=== PATIENT | male | born 1980 | race Caucasian/White ===

== ENCOUNTER 2020-06-04 10:31 | Day surgery (SDC) | payer BC ==
--- NOTE | 2020-06-04 07:39 | PCM.SN.2 ---
- Free Text/Narrative Note: Date: 06/04/2020 Time Out: 1152 Start: 1152 Stop: 1203 Current Procedure: Left interscalene block under US guidance for postoperative pain control requested by Dr. Waite. Patient chart reviewed, risk/benefits discussed with patient, consent obtained. Patient positioned supine, monitors/alarms on, oxygen placed via nasal cannula at 2 LPM. IV sedation administered: Versed 2mg IV, Fentanyl 50mcg IV given in preop prior to block placement. Left shoulder prepped with two chloropreps. Sterile drapes placed with aseptic technique noted. Under US guidance, left subclavian artery visualized along with the left brachial plexus. Plexus followed up to C6 cricoid level, and area localized with 2mls of 1% lidocaine. 22gauge 2 inch stimiplex needle advanced under US with 0.6mV with stimulation of biceps noted. Good stimulation noted with decreased voltage and absent at 0.3mVs. 1ml of Normal Saline injected with loss of stimulation noted to confirm needle not placed intraneurally. Incremental dosing of 5mls with negative aspiration noted prior to each injection of 0.5% ropivacaine with 1:200,000 epinephrine. Total volume=30mls. Please refer to nurses noted for vital signs. Reanna Nelson CRNA
--- NOTE | 2020-06-04 09:21 | PCM.PREANE ---
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 with energy drinks/pre- workout beverage)) Gastrointestinal: No Symptoms Neurological: No Symptoms Other: Reports: None - Physical Assessment NPO Status Date: 06/03/20 NPO Status Time: 23:00 Vital Signs: HR:67 Sat:96% Resp:16 B/P:113/86 Temp:98.3 Height: 1.88 m Weight: 95 kg ASA Class: 2 Mental Status: Alert & Oriented x3 Airway Class: Mallampati = 2 Dentition: Reports: Normal Dentition, Caries Thyro-Mental Finger Breadths: 3 Mouth Opening Finger Breadths: 3 ROM/Head Extension: Full Lungs: Clear to Auscultation, Normal Respiratory Effort Cardiovascular: Regular Rate, Regular Rhythm, No Murmurs - Lab Values: Laboratory Last Values MRSA (PCR) Negative 05/23/20 14:12 All labs reviewed and noted and within acceptable ranges to proceed with scheduled procedure. - Imaging/EKG Impressions: EKG: Sinus Rhythm rate=65. - Allergies Allergies/Adverse Reactions: Allergies Allergy/AdvReac Type Severity Reaction Status Date / Time No Known Allergies Allergy Verified 06/03/20 13:40 - Anesthesia Plan Pre-Op Medication Ordered: None - Acknowledgements Anesthesia Type Planned: General Anesthesia (Left ISB under US guidance for post operative pain control requested by Dr. Waite.) Pt an Appropriate Candidate for the Planned Anesthesia: Yes Alternatives and Risks of Anesthesia Discussed w Pt/Guardian: Yes Pt/Guardian Understands and Agrees with Anesthesia Plan: Yes PreAnesthesia Questionnaire - Past Health History Medical/Surgical History: Denies Medical/Surgical History - Infectious Disease History Infectious Disease History: Reports: None - SUBSTANCE USE Tobacco Use Status *Q: Never Tobacco User Recreational Drug Use History: No - HOME MEDS Home Medications: Home Meds Multivitamin 1 tab PO DAILY 06/03/20 [History] Acetaminophen/HYDROcodone [[place] 325-5 MG] 1 - 2 tab PO Q6H PRN #30 tablet 06/04/20 [Rx] Cyclobenzaprine [Flexeril] 10 mg PO BID PRN #20 tab 06/04/20 [Rx] - CURRENT (IN HOUSE) MEDS Current Meds: Current Medications Lactated Ringer's (Ringers, Lactated) 1,000 mls @ 125 mls/hr IV ASDIRECTED SAÚL Stop: 06/04/20 23:00 Lidocaine/Sodium Bicarbonate (Buffered Lidocaine 1% In Ns 8.4%) 0.25 ml IDERM ONETIME PRN PRN Reason: Prior to IV Start Stop: 06/04/20 18:00 Sodium Chloride (Saline Flush) 10 ml FLUSH ASDIRECTED PRN PRN Reason: Keep Vein Open Stop: 06/04/20 18:00 Discontinued Medications Epinephrine HCl (Adrenalin) Confirm Administered Dose 1 mg .ROUTE .STK-MED ONE Stop: 06/04/20 06:45 Lidocaine HCl (Xylocaine-Mpf 1%) Confirm Administered Dose 2 mls @ as directed .ROUTE .STK-MED ONE Stop: 06/04/20 06:45 Ropivacaine (Naropin 0.5%) Confirm Administered Dose 30 ml .ROUTE .STK-MED ONE Stop: 06/04/20 06:45
[~2020-06-04 10:31] MED LIST: EPINEPHrine 1 MG/ML SDV ONE; Lactated Ringers 1,000 ML IV SCH; Lidocaine 1% 2 ML ONE; Lidocaine 1% 4 ML ONE; Lidocaine 1%/Sod Bicarbonate in NS 8.4% 1 ML Syringe IDERM PRN; Midazolam 1 MG/ML 2 ML SDV ONE; Propofol 200 MG/20 ML SDV ONE; Ropivacaine 0.5% 5 MG/ML 30 ML SDV ONE; Sodium Chloride 0.9% 10 ML Syringe FLUSH PRN
[2020-06-04] MEDS ORDERED: fentaNYL 100 MCG/2 ML SDV ONE ×2 (10:32→11:13)
[2020-06-04] MEDS ORDERED: Rocuronium 50 MG/5 ML Vial ONE (11:13)
[2020-06-04] MEDS ORDERED: ceFAZolin 1 GM Vial ONE (12:44)
[2020-06-04] MEDS ORDERED: EPINEPHrine 1 MG/ML 30 ML MDV IRR SCH (12:45)
[2020-06-04] MEDS ORDERED: Ondansetron 4 MG/2 ML SDV IVPUSH PRN (13:33)
[2020-06-04] MEDS ORDERED: Ketorolac 30 MG/ML SDV ONE (13:44)
[2020-06-04] MEDS ORDERED: Ondansetron 4 MG/2 ML SDV ONE (13:44)
--- NOTE | 2020-06-04 14:13 | PCM.POSTAN ---
POST ANESTHESIA ASSESSMENT - MENTAL STATUS Mental Status: Alert, Oriented - VITAL SIGNS Vital Signs: Last Vital Signs Temp 36.7 C 06/04/20 14:07 Pulse 78 06/04/20 12:07 Resp 10 L 06/04/20 14:07 BP 150/94 H 06/04/20 14:07 Pulse Ox 97 06/04/20 14:07 - RESPIRATORY Respiratory Status: Respiratory Rate WNL, Airway Patent, O2 Saturation Stable - CARDIOVASCULAR CV Status: Pulse Rate WNL, Blood Pressure Stable - GASTROINTESTINAL GI Status: No Symptoms - PAIN Pain Score: 0 - POST OP HYDRATION Hydration Status: Adequate & Stable
--- NOTE | 2020-06-04 14:44 | PCM48HPAN ---
Post Anesthesia Note - EVALUATION WITHIN 48HRS OF ANESTHETIC Vital Signs in Normal Range: Yes Patient Participated in Evaluation: Yes Respiratory Function Stable: Yes Airway Patent: Yes Cardiovascular Function Stable: Yes Hydration Status Stable: Yes Pain Control Satisfactory: Yes Nausea and Vomiting Control Satisfactory: Yes Mental Status Recovered: Yes Vital Signs: Last Vital Signs Temp 36.7 C 06/04/20 14:07 Pulse 78 06/04/20 12:07 Resp 14 06/04/20 14:30 BP 147/104 H 06/04/20 14:30 Pulse Ox 99 06/04/20 14:41
--- NOTE | 2020-06-13 10:34 | PCM.OPNOTE ---
- General Post-Op/Procedure Note Date of Surgery/Procedure: 06/04/20 Operative Procedure(s): left shoulder video arthroscopy with bicepts tenotomy, extensive debridement and SLAP repair Pre Op Diagnosis: left shoulder SLAP tear with tendinopathy and chondromalacia Post-Op Diagnosis: Same Anesthesia Technique: General ET Tube, Regional Block Primary Surgeon: Brian Waite Anesthesia Provider: Daysi Mares Pipe Bending Machine Operator: Nicole Nuno in mLs: 5 Complications: None Condition: Good
--- NOTE | 2020-06-17 13:43 | OR ---
DATE OF OPERATION: 06/04/2020 SURGEON: Brian Waite MD OPERATION PERFORMED: Left shoulder video arthroscopy with biceps tenotomy, extensive debridement, and SLAP repair. PREOPERATIVE DIAGNOSIS: Left shoulder SLAP tear with tendinopathy and chondromalacia. 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 ANESTHESIA: General endotracheal intubation with regional interscalene block. ANESTHESIA PROVIDER: Daysi Mares CRNA LOCAL COORDINATOR: Nicole Nuno PA-C. ESTIMATED BLOOD LOSS: Less than 5 mL. COMPLICATIONS: None. CONDITION: Stable. DESCRIPTION OF PROCEDURE: The patient was identified in the preoperative holding area. Proper site was marked and identified by the surgeon. The patient was taken back to the operating theater where after adequate anesthesia the patient was placed in a lazy right lateral decubitus position. Wedge was placed posteriorly. Left upper extremity was then sterilely prepped and draped in the usual sterile fashion. OR time-out was performed. The patient received 2 g IV Ancef. 12 pounds traction was applied to the left upper extremity. Standard posterior incision was made. Scope trocar was introduced into the glenohumeral joint. With the use of a spinal needle, inside-out technique, an anterior portal was created as well. The patient was noted to have large cartilaginous defects in both glenoid and the humeral head with grade 3/4 chondromalacia diffusely. The patient was noted to have a significant SLAP tear with biceps tendinopathy. His subscapularis tendon as well as the rotator cuff were intact on the undersurface. The patient at this time underwent a biceps tenotomy. I did do an extensive debridement of the chondromalacia as well as the extreme synovitis. I debrided the labrum back to a stable rim and then placed 2 anchors in the superior anterior labrum to keep it from flipping into the joint and was found to have adequate repair. At this time, attention was turned to the subacromial space. The patient's rotator cuff was intact. I did an extensive debridement of the subacromial space. I did not perform an acromioplasty secondary to the patient more likely needing a reverse total shoulder arthroplasty sometime in his life. Incisions were closed with 3-0 nylon. The patient was placed in a sterile soft dressing and a pillow sling and sent to the PACU in stable condition. LAUREN /[id number]
== END 2020-06-04 15:46 | disposition home or self-care (01) ==
LOC: JD.SDS 10:31
PROVIDERS: ATTEND Orthopaedic Surgery
DX: S43.432A Superior glenoid labrum lesion of left shoulder, initial encounter (principal); M94.212 Chondromalacia, left shoulder; M75.22 Bicipital tendinitis, left shoulder; M65.812 Other synovitis and tenosynovitis, left shoulder; G89.18 Other acute postprocedural pain; Z79.899 Other long term (current) drug therapy
CPT/HCPCS: 01630; 64415; 87641; C1713; J0171; J0690; J1885; J2250; J2405; J2704; J2795; J3010; J7120

== ENCOUNTER 2020-08-23 07:39 | Day surgery (SDC) | payer BC ==
--- NOTE | 2020-08-23 07:22 | PCM.PREANE ---
Preanesthetic Assessment - Procedure Proposed Procedure: Right shoulder video arthroscopy with labral repair - Anesthesia/Transfusion/Family Hx Anesthesia History: No Prior Anesthesia Family History of Anesthesia Reaction: No Transfusion History: No Prior Transfusion(s) Intubation History: Unknown - Review of Systems General: No Symptoms Pulmonary: No Symptoms Cardiovascular: No Symptoms Gastrointestinal: No Symptoms Neurological: No Symptoms Other: Reports: None - Physical Assessment NPO Status Date: 08/22/20 NPO Status Time: 00:00 Height: 1.88 m Weight: 94 kg ASA Class: 2 Mental Status: Alert & Oriented x3 Airway Class: Mallampati = 1 Dentition: Reports: Normal Dentition Thyro-Mental Finger Breadths: 3 Mouth Opening Finger Breadths: 3 ROM/Head Extension: Full Lungs: Clear to Auscultation, Normal Respiratory Effort Cardiovascular: Regular Rate, Regular Rhythm - Allergies Allergies/Adverse Reactions: Allergies Allergy/AdvReac Type Severity Reaction Status Date / Time No Known Allergies Allergy Verified 08/22/20 14:01 - Anesthesia Plan Pre-Op Medication Ordered: None - Acknowledgements Anesthesia Type Planned: General Anesthesia, Regional Block (interscalene block for post-op pain control) Pt an Appropriate Candidate for the Planned Anesthesia: Yes Alternatives and Risks of Anesthesia Discussed w Pt/Guardian: Yes Pt/Guardian Understands and Agrees with Anesthesia Plan: Yes PreAnesthesia Questionnaire - Past Health History Medical/Surgical History: Denies Medical/Surgical History HEENT History: Reports: None Cardiovascular History: Reports: Other (See Below) Other Cardiovascular History: palpitations Respiratory History: Reports: None Gastrointestinal History: Reports: None Genitourinary History: Reports: None IC ENGINEER History: Reports: None Musculoskeletal History: Neurological History: Reports: None Psychiatric History: Reports: None Endocrine/Metabolic History: Reports: None Hematologic History: Reports: None Immunologic History: Reports: None Oncologic (Cancer) History: Reports: None Dermatologic History: Reports: None - Infectious Disease History Infectious Disease History: Reports: None - Past Surgical History Head Surgeries/Procedures: Reports: None HEENT Surgical History: Reports: None Cardiovascular Surgical History: Reports: None Respiratory Surgical History: Reports: None GI Surgical History: Reports: None Female Surgical History: Reports: None Male Surgical History: Reports: None Endocrine Surgical History: Reports: None Neurological Surgical History: Reports: None Musculoskeletal Surgical History: Reports: Shoulder Surgery Oncologic Surgical History: Reports: None Dermatological Surgical History: Reports: None - SUBSTANCE USE Tobacco Use Status *Q: Never Tobacco User Tobacco Use Within Last Twelve Months: No Second Hand Smoke Exposure: No Days Per Week of Alcohol Use: 0 Number of Drinks Per Day: 0 Total Drinks Per Week: 0 Recreational Drug Use History: No - HOME MEDS Home Medications: Home Meds Multivitamin 1 tab PO DAILY 06/03/20 [History] Acetaminophen/HYDROcodone [[place] 325-5 MG] 1 - 2 tab PO Q6H PRN #30 tablet 08/23/20 [Rx] Cyclobenzaprine [Flexeril] 10 mg PO BID PRN #20 tab 08/23/20 [Rx] - CURRENT (IN HOUSE) MEDS Current Meds: Current Medications Epinephrine HCl (Epinephrine 1 Mg/Ml 30 Ml Mdv) 3 mg IRR ONETIME SAÚL Stop: 08/23/20 16:00 Lactated Ringer's (Ringers, Lactated) 1,000 mls @ 125 mls/hr IV ASDIRECTED SAÚL Stop: 08/23/20 23:00 Lidocaine/Sodium Bicarbonate (Lidocaine 1%/Sod Bicarbonate In Ns 8.4% 1 Ml Syringe) 0.25 ml IDERM ONETIME PRN PRN Reason: Prior to IV Start Stop: 08/23/20 18:00 Sodium Chloride (Sodium Chloride 0.9% 10 Ml Syringe) 10 ml FLUSH ASDIRECTED PRN PRN Reason: Keep Vein Open Stop: 08/23/20 18:00 Discontinued Medications Cefazolin Sodium (Cefazolin 1 Gm Vial) Confirm Administered Dose 2 gm .ROUTE .STK-MED ONE Stop: 08/23/20 06:54 Epinephrine HCl (Epinephrine 1 Mg/Ml Sdv) Confirm Administered Dose 1 mg .ROUTE .STK-MED ONE Stop: 08/23/20 06:57 Fentanyl (Fentanyl 100 Mcg/2 Ml Sdv) Confirm Administered Dose 100 mcg .ROUTE .STK-MED ONE Stop: 08/23/20 06:44 Lidocaine HCl (Xylocaine-Mpf 1%) Confirm Administered Dose 6 mls @ as directed .ROUTE .STK-MED ONE Stop: 08/23/20 06:44 Midazolam HCl (Midazolam 1 Mg/Ml 2 Ml Sdv) Confirm Administered Dose 2 mg .ROUTE .STK-MED ONE Stop: 08/23/20 06:44 Ondansetron HCl (Ondansetron 4 Mg/2 Ml Sdv) Confirm Administered Dose 4 mg .ROUTE .STK-MED ONE Stop: 08/23/20 06:43 Propofol (Propofol 200 Mg/20 Ml Sdv) Confirm Administered Dose 200 mg .ROUTE .STK-MED ONE Stop: 08/23/20 06:44 Rocuronium Brady (Rocuronium 50 Mg/5 Ml Vial) Confirm Administered Dose 50 mg .ROUTE .STMusistic-MED ONE Stop: 08/23/20 06:43 Ropivacaine (Ropivacaine 0.5% 5 Mg/Ml 30 Ml Sdv) Confirm Administered Dose 30 ml .ROUTE .STMusistic-MED ONE Stop: 08/23/20 06:57
[~2020-08-23 07:39] MED LIST changes: -Lidocaine 1% 2 ML ONE; -Lidocaine 1% 4 ML ONE; +Lidocaine 1% 6 ML ONE; +Ondansetron 4 MG/2 ML SDV ONE; +Rocuronium 50 MG/5 ML Vial ONE; +ceFAZolin 1 GM Vial ONE; +fentaNYL 100 MCG/2 ML SDV ONE
--- NOTE | 2020-08-23 08:03 | PCM.SN.2 ---
- Free Text/Narrative Note: Date: 08/23/2020 Time Out:734 Start: 734 Stop: 749 Surgical Procedure: Right shoulder video arthroscopy with labral repair Diagnosis Right Shoulder pain Current Procedure: Right interscalene block under US guidance for postoperative pain control requested by Dr. Waite. Patient chart reviewed, risk/benefits discussed with patient, consent obtained. Patient positioned supine, monitors/alarms on, oxygen placed via nasal cannula at 2 LPM. IV sedation administered: Versed 2mg IV, Fentanyl 100mcg IV given in preop prior to block placement. Right shoulder prepped with three chloropreps. Sterile drapes placed with aseptic technique noted. Under US guidance, right subclavian artery visualized along with the right brachial plexus. Plexus followed up to C6 cricoid level, and area localized with 2mls of 1% lidocaine. 22gauge 2 inch stimiplex needle advanced under US with 0.8mV with stimulation of biceps noted. Good stimulation noted with decreased voltage and absent at 0.3mVs. 1ml of Normal Saline injected with loss of stimulation noted to confirm needle not placed intraneurally. Incremental dosing of 5mls with negative aspiration noted prior to each injection of 0.5% ropivacaine with 1:200,000 epinephrine. Total volume=30mls. Please refer to nurses noted for vital signs. Rishi Alves CRNA
[2020-08-23] MEDS: EPINEPHrine 1 MG/ML 30 ML MDV IRR SCH ×2 (08:19→09:28)
[2020-08-23] MEDS ORDERED: Lactated Ringers 1,000 ML ONE (08:54)
[2020-08-23] MEDS ORDERED: Ketorolac 30 MG/ML SDV ONE (09:55)
--- NOTE | 2020-08-23 10:29 | PCM.POSTAN ---
POST ANESTHESIA ASSESSMENT - MENTAL STATUS Mental Status: Alert, Oriented - VITAL SIGNS Vital Signs: Last Vital Signs Temp 36.1 C 08/23/20 10:17 Pulse 75 08/23/20 10:17 Resp 17 08/23/20 10:17 BP 129/91 H 08/23/20 10:17 Pulse Ox 93 L 08/23/20 10:17 - RESPIRATORY Respiratory Status: Respiratory Rate WNL, Airway Patent, O2 Saturation Stable, Supplemental Oxygen - CARDIOVASCULAR CV Status: Pulse Rate WNL, Blood Pressure Stable - GASTROINTESTINAL GI Status: No Symptoms - PAIN Pain Score: 0 - POST OP HYDRATION Hydration Status: Adequate & Stable - OBSERVATIONS Free Text/Narrative:: no anesthesia complications noted
[2020-08-23] MEDS ORDERED: Ondansetron 4 MG/2 ML SDV IVPUSH ONE (11:20)
--- NOTE | 2020-08-23 12:52 | PCM48HPAN ---
Post Anesthesia Note - EVALUATION WITHIN 48HRS OF ANESTHETIC Vital Signs in Normal Range: Yes Patient Participated in Evaluation: Yes Respiratory Function Stable: Yes Airway Patent: Yes Cardiovascular Function Stable: Yes Hydration Status Stable: Yes Pain Control Satisfactory: Yes Nausea and Vomiting Control Satisfactory: Yes Mental Status Recovered: Yes Vital Signs: Last Vital Signs Temp 36.6 C 08/23/20 12:15 Pulse 75 08/23/20 12:15 Resp 16 08/23/20 12:15 BP 121/86 08/23/20 12:15 Pulse Ox 92 L 08/23/20 12:15 - COMMENTS/OBSERVATIONS Free Text/Narrative:: no anesthesia complications noted
--- NOTE | 2020-08-24 06:43 | PCM.OPNOTE ---
- General Post-Op/Procedure Note Date of Surgery/Procedure: 08/23/20 Operative Procedure(s): right shoulder video arthroscopy with bankart repair, extensive debridement and biceps tenotomy Pre Op Diagnosis: right shoulder anterior labral tear with instability with biceps tendinitis and grade 3 chondromalacia of the glenoid Post-Op Diagnosis: Same Anesthesia Technique: General ET Tube, Regional Block Primary Surgeon: Brian Waite Anesthesia Provider: Rishi Alves Reel Stripper: Shaniqua Phillips EBL in mLs: 5 Complications: None Condition: Good Free Text/Narrative:: Intake & Output 08/23/20 08/23/20 08/24/20 14:59 22:59 06:59 Intake Total 750 Balance 750
--- NOTE | 2020-08-24 09:38 | OR ---
DATE OF OPERATION: 08/23/2020 SURGEON: Brian Waite MD OPERATION PERFORMED: Right shoulder video arthroscopy with Bankart repair, extensive debridement, and biceps tenotomy. PREOPERATIVE DIAGNOSIS: Right shoulder anterior labral tear with instability with biceps tendinitis and grade 3 chondromalacia of the glenoid. POSTOPERATIVE DIAGNOSIS: Right shoulder anterior labral tear with instability with biceps tendinitis and grade 3 chondromalacia of the glenoid. ANESTHESIA: General endotracheal intubation with regional interscalene block. ANESTHESIA: Rishi Alves CRNA SERVICE STATION ATTENDANT: Shaniqua Phillips LPN ESTIMATED BLOOD LOSS: 5 mL. COMPLICATIONS: None. CONDITION: Stable. DESCRIPTION OF PROCEDURE: The patient was identified in the preoperative holding area. Proper site was marked and identified by the surgeon. The patient was taken back to the operating theater where after adequate anesthesia the patient was placed in a left lateral lazy decubitus position. A wedge was placed posteriorly. The patient was secured to the table. Right upper extremity was then sterilely prepped and draped in the usual sterile fashion. OR time-out was performed. The patient received 2 g of IV Ancef. 12 pounds of traction was applied to the right upper extremity. At this time, posterior incision was made. Scope trocar was introduced to the glenohumeral joint. At this time, the patient was noted to have complete tearing of the anterior portion of the labrum all the way from the 12:30 position to the 3:30 position. There was noted to be grade 3 chondromalacia in the central anterior portion of the glenoid where the patient had previously dislocated multiple times. There was no large defect on the humeral head that was noted. There were no large engaging Hill-Sachs noted. The undersurface of the rotator cuff was intact with no signs of even partial tearing. Biceps tendon was noted to have significant tendonitis and tendinopathy. At this time, anterior portal was created and a biceps tenotomy was performed. A 4.0 full-radius franko was then utilized to remove the anterior spur off the glenoid as well as to get to good subchondral bleeding bone on the anterior portion of the glenoid as well as on the face of the previous chondromalacia noted on the glenoid. Once this was completed, I began at the 3:30 position. A FiberStick was then passed underneath the labrum and anterior capsule, which was off the glenoid and a Arthrex 2.5 mm PushLock anchor was then placed starting at the 3:30 position. I then placed 4 more going all the way up to the 12:30 position and had a watertight repair. I did bring it over the face of the glenoid into the cartilaginous defect and nearly 75% of that cartilaginous defect was now covered by labrum. It was found to have adequate watertight repair of the Bankart lesion. At this time, debridement of all loose chondromalacia pieces as well as synovitis was done. At this time, scope trocar was removed. 3-0 nylon sutures were used for closure of the skin. The patient was placed in a sterile soft dressing and a pillow sling and was sent to the PACU in stable condition. LAUREN /[id number]
== END 2020-08-23 13:10 | disposition home or self-care (01) ==
LOC: JD.SDS 07:39
PROVIDERS: ATTEND Orthopaedic Surgery
DX: S43.431A Superior glenoid labrum lesion of right shoulder, initial encounter (principal); M94.211 Chondromalacia, right shoulder; M75.21 Bicipital tendinitis, right shoulder; M25.311 Other instability, right shoulder
CPT/HCPCS: 01630; 64415; 76942; C1713; J0171; J0690; J1885; J2250; J2405; J2704; J2795; J3010; J7120